=== PATIENT | female | born 1935 | race Hispanic/Latino ===

== ENCOUNTER 2017-06-23 17:37 | Observation (INO) | payer OTHER ==
[~2017-06-23] VITALS: Ht 167.6 cm; Wt 82.0 kg
[~2017-06-23 17:37] MED LIST: AMLO5TAB2 PO; ASPI-1005 PO; CALC-1009 PO; FERR324T4 PO; FOLI-44 PO; FURO40TA5 PO; GABA-529 PO; LISI2.5T2 PO; METO25TA6 PO; PANT40TA25 PO; PRAV10TA39 PO; SITA100T12 PO
[2017-06-23 18:02] LABS: BASOPHILS % (AUTO) 0.5 % (0.0-5.0); EOSINOPHILS % (AUTO) 2.3 % (0.0-8.0); HEMATOCRIT 21.6 % (36-48); LYMPHOCYTES % (AUTO) 21.2 % (21.0-51.0); MEAN CORPUSCULAR HGB CONC 31.4 g/dL (32.0-36.0); MEAN CORPUSCULAR VOLUME 73.3 fL (79-99); MONOCYTES % (AUTO) 10.5 % (3.0-13.0); NEUTROPHILS % (AUTO) 65.5 % (40.0-77.0); NUCLEATED RED BLOOD CELLS 0.1 % (0.0-0.19); PLATELET COUNT (AUTO) 170 K/uL (130-400); RED BLOOD CELL COUNT(AUTO) 2.95 MIL/uL (4.00-5.50); RED CELL DISTRIBUTION WIDTH 17.8 % (11.0-15.5); WHITE BLOOD COUNT (AUTO) 7.2 K/uL (4.8-10.8)
[2017-06-23 18:16] LABS: ALBUMIN 2.9 g/dL (3.5-5.0); BILIRUBIN,TOTAL 0.3 mg/dL (0.2-1.0); CREATININE 2.3 mg/dL (0.5-1.5); POTASSIUM 4.4 mmol/L (3.5-5.1); TOTAL PROTEIN, SERUM 7.6 g/dL (6.0-8.3)
[2017-06-23] MEDS ORDERED: DEXTROSE 50%-WATER 50 ML DISP.SYRIN IV ONE (18:20)
[2017-06-23 22:10] VITALS: BP 173/75
[2017-06-23] MEDS ORDERED: DEXTROSE 50%-WATER 50 ML DISP.SYRIN IV PRN (22:15)
[2017-06-23] MEDS ORDERED: GLUCAGON 1MG KIT 1 MG ML IM PRN (22:15)
[2017-06-23 23:33] VITALS: BP 155/69
[2017-06-23] MEDS ORDERED: GUAIFENESIN-DM 200/20 MG 10 ML PO PRN (23:45)
[2017-06-23] MEDS ORDERED: LACTULOSE 20 GM/30 ML UDCUP PO PRN (23:45)
[2017-06-23] MEDS ORDERED: HYDRALAZINE HCL 20 MG/ML VIAL IV PRN (23:45)
[2017-06-23] MEDS ORDERED: CEFTRIAXONE 1GM/D5W 50ML 50 ML IV SCH (23:45)
[2017-06-23] MEDS ORDERED: NITROGLYCERIN 0.4 MG SL TAB SL PRN (23:45)
[2017-06-23] MEDS ORDERED: ONDANSETRON HCL 4 MG/2 ML VIAL IV PRN (23:45)
[2017-06-23] MEDS ORDERED: ACETAMINOPHEN 325 MG TAB PO PRN ×2 (23:45)
[2017-06-24] MEDS ORDERED: AZITHROMYCIN 500MG+NS 250ML 250 ML IV SCH
[2017-06-24] MEDS ORDERED: CEFTRIAXONE SODIUM 1 GM IVP SCH (00:30)
[2017-06-24] MEDS: NITROGLYCERIN 1GM/1 INCH PACKET TD SCH ×3 (00:57→15:45)
[2017-06-24] MEDS ORDERED: FUROSEMIDE 10 MG/ML 4ML VIAL IVP ONE (01:00)
[2017-06-24] MEDS: IPRATROPIUM/ALBUTEROL SULFATE 3 ML SOLUTION IH SCH ×2 (01:26→06:22)
[2017-06-24 03:37] VITALS: BP 126/58
[2017-06-24 06:05] LABS: HEMATOCRIT 25.6 % (36-48); MEAN CORPUSCULAR HGB CONC 32.4 g/dL (32.0-36.0); MEAN CORPUSCULAR VOLUME 74.1 fL (79-99); NUCLEATED RED BLOOD CELLS 0.2 % (0.0-0.19); PLATELET COUNT (AUTO) 158 K/uL (130-400); RED BLOOD CELL COUNT(AUTO) 3.46 MIL/uL (4.00-5.50); RED CELL DISTRIBUTION WIDTH 17.6 % (11.0-15.5); WHITE BLOOD COUNT (AUTO) 8.4 K/uL (4.8-10.8)
[2017-06-24 06:38] LABS: CARBON DIOXIDE 27 mmol/L (21-32); CHLORIDE 107 mmol/L (101-111); CREATINE KINASE MB 1.7 ng/mL (0.5-3.6); CREATINE KINASE, TOTAL 64 U/L (21-232); CREATININE 2.4 mg/dL (0.5-1.5); GLOMERULAR FILTR. RATE CALC 21 mL/min (>60); GLUCOSE,RANDOM 130 mg/dL (70-105); MYOGLOBIN 97 ng/mL (10-92); POTASSIUM 5.5 mmol/L (3.5-5.1); SODIUM SERUM 143 mmol/L (136-145); TROPONIN I < 0.04 ng/mL (0.00-0.06); UREA NITROGEN, BLOOD 35 mg/dL (7-18)
[2017-06-24] MEDS ORDERED: SODIUM POLYSTYRENE SULFONATE 15 GM/60 ML ML PO SCH (07:00)
[2017-06-24 07:38] VITALS: BP 148/73
[2017-06-24] MEDS ORDERED: FAMOTIDINE 20MG TAB 20 MG TAB PO SCH (09:00)
[2017-06-24] MEDS ORDERED: FUROSEMIDE 10 MG/ML 4ML VIAL IV SCH (09:00)
[2017-06-24] MEDS ORDERED: FUROSEMIDE 40 MG TABLET PO SCH (10:00)
[2017-06-24 10:18] LABS: RETICULOCYTE % (AUTO) 2.72 % (0.42-2.23)
[2017-06-24 10:52] LABS: % IRON SATURATION 40.8 % (22-44); FERRITIN 11 ng/mL (15-150); IRON, SERUM 143 mcg/dL (50-170); TOTAL IRON BINDING CAPACITY 350 mcg/dL (250-450)
[2017-06-24 11:16] VITALS: BP 146/67
[2017-06-24 12:31] LABS: CREATINE KINASE MB 1.8 ng/mL (0.5-3.6); CREATINE KINASE, TOTAL 70 U/L (21-232); MYOGLOBIN 132 ng/mL (10-92); TROPONIN I < 0.04 ng/mL (0.00-0.06)
[2017-06-24] MEDS ORDERED: IRON SUCROSE COMPLEX 100 MG in SODIUM CHLORIDE 0.9% 50 ML IV ONE (14:00)
[2017-06-24 16:44] VITALS: BP 153/67
[2017-08-18] MEDS ORDERED: TRAZ-147 PO (08:33)
== END 2017-06-24 19:47 | disposition home or self-care (01) ==
LOC: EDH 17:37 → EDHIP 20:18 → 2DH 20:49
PROVIDERS: ADMIT Internal Medicine; ATTEND Internal Medicine
DX: D50.9 Iron deficiency anemia, unspecified (principal); E78.5 Hyperlipidemia, unspecified; K59.00 Constipation, unspecified; I13.2 Hypertensive heart and chronic kidney disease with heart failure and with stage 5 chronic kidney disease, or end stage renal disease; E11.22 Type 2 diabetes mellitus with diabetic chronic kidney disease; E11.51 Type 2 diabetes mellitus with diabetic peripheral angiopathy without gangrene; E11.649 Type 2 diabetes mellitus with hypoglycemia without coma; N18.6 End stage renal disease; I50.9 Heart failure, unspecified; D63.8 Anemia in other chronic diseases classified elsewhere; Z86.010 Personal history of colon polyps; Z90.49 Acquired absence of other specified parts of digestive tract
CPT/HCPCS: 36415 ×2; 36430 ×2; 71045; 76770; 80048; 80053; 82270; 82550 ×2; 82553 ×2; 82607; 82728; 82746; 82948 ×7; 83874 ×2; 83880; 84484 ×2; 85025; 85027; 86850; 86900; 86901; 86922 ×2; 87804 ×2; 93005; 94640 ×2; 94664; 96365; 96375; 96376; 99285; A4218; G0378 ×23; J0456; J0696 ×2; J1756; J1940 ×2; J7070; P9016 ×2

== ENCOUNTER 2017-08-18 03:47 | Observation (INO) | payer OTHER ==
[~2017-08-18] VITALS: Ht 165.1 cm; Wt 75.1 kg
[2017-08-18 04:52] LABS: APPEARANCE,URINE TURBID (CLEAR); BILIRUBIN,URINE Negative (NEGATIVE); COLOR,URINE RED (YELLOW); GLUCOSE, URINE (UA) Negative (NEGATIVE); KETONES,URINE Negative (NEGATIVE); LEUKOCYTE ESTERASE ,URINE Large (NEGATIVE); NITRATE,URINE Negative (NEGATIVE); OCCULT BLOOD,URINE Large (NEGATIVE); PROTEIN,URINE POS 2+ (NEGATIVE); UROBILINOGEN,URINE 0.2 mg/dL (0.2-1.0)
[2017-08-18 04:53] LABS: BACTERIA,URINE Rare /HPF (None Seen); RBC,URINE >100 /HPF (0-1); SQUAMOUS EPITHELIAL CELL,UR Few /HPF (0-2)
[2017-08-18 06:13] LABS: BASOPHILS % (AUTO) 0.3 % (0.0-5.0); EOSINOPHILS % (AUTO) 1.1 % (0.0-8.0); LYMPHOCYTES % (AUTO) 14.5 % (21.0-51.0); MEAN CORPUSCULAR HEMOGLOBIN 27.8 pg (27.0-33.0); MEAN CORPUSCULAR HGB CONC 35.1 g/dL (32.0-36.0); MEAN CORPUSCULAR VOLUME 79.1 fL (79-99); MONOCYTES % (AUTO) 7.9 % (3.0-13.0); NEUTROPHILS % (AUTO) 76.2 % (40.0-77.0); PLATELET COUNT (AUTO) 141 K/uL (130-400); RED BLOOD CELL COUNT(AUTO) 3.28 MIL/uL (4.00-5.50); RED CELL DISTRIBUTION WIDTH 19.8 % (11.0-15.5); WHITE BLOOD COUNT (AUTO) 8.1 K/uL (4.8-10.8)
[2017-08-18 06:28] LABS: CREATININE 2.8 mg/dL (0.5-1.5); POTASSIUM 5.4 mmol/L (3.5-5.1)
[2017-08-18] MEDS ORDERED: SODIUM POLYSTYRENE SULFONATE 15 GM/60 ML ML ONE (07:58)
[2017-08-18] MEDS ORDERED: TRAZ-187 PO (08:33)
[2017-08-18] MEDS ORDERED: ACETAMINOPHEN 325 MG TAB PO PRN ×2 (09:00)
[2017-08-18] MEDS ORDERED: CLONIDINE HCL 0.1 MG TABLET PO PRN (09:00)
[2017-08-18] MEDS ORDERED: LACTULOSE 20 GM/30 ML UDCUP PO PRN (09:00)
[2017-08-18] MEDS ORDERED: ONDANSETRON HCL MDV 20ML 2 MG/ML VIAL IVP PRN (09:00)
[2017-08-18] MEDS ORDERED: INSU100I15 SQ ×2 (09:42)
[2017-08-18] MEDS: PANTOPRAZOLE 40 MG/VIAL IVP SCH (10:26)
[2017-08-18] MEDS ORDERED: INSULIN HUMULIN R 100 UNIT/ML 3ML SQ SCH (11:30)
[2017-08-18 12:54] VITALS: BP 142/63
[2017-08-18 15:07] VITALS: BP 175/74
[2017-08-18] MEDS: INSULIN HUMULIN R 100 UNIT/ML 3ML SQ SCH ×2 (17:30→23:30)
[2017-08-18 17:57] VITALS: BP 142/62
[2017-08-18 20:02] VITALS: BP 152/72
[2017-08-19 00:09] VITALS: BP 148/67
[2017-08-19 04:15] VITALS: BP 149/66
[2017-08-19 04:31] LABS: HEMATOCRIT 25.3 % (36-48); MEAN CORPUSCULAR HEMOGLOBIN 25.8 pg (27.0-33.0); MEAN CORPUSCULAR HGB CONC 32.6 g/dL (32.0-36.0); MEAN CORPUSCULAR VOLUME 79.1 fL (79-99); PLATELET COUNT (AUTO) 131 K/uL (130-400); RED CELL DISTRIBUTION WIDTH 20.5 % (11.0-15.5); WHITE BLOOD COUNT (AUTO) 6.8 K/uL (4.8-10.8)
[2017-08-19 04:47] LABS: CREATININE 2.6 mg/dL (0.5-1.5); POTASSIUM 4.5 mmol/L (3.5-5.1)
[2017-08-19] MEDS: INSULIN HUMULIN R 100 UNIT/ML 3ML SQ SCH ×4 (05:30→23:30)
[2017-08-19 08:00] VITALS: BP 182/81
[2017-08-19 09:29] LABS: HEMATOCRIT 25.4 % (36-48)
[2017-08-19] MEDS ORDERED: METR375C2 PO (10:03)
[2017-08-19 11:00] VITALS: BP 141/57
[2017-08-19] MEDS: PANTOPRAZOLE 40 MG/VIAL IVP SCH (17:54)
[2017-08-19 19:05] VITALS: BP 147/74
[2017-08-20] VITALS: BP 151/61
[2017-08-20 04:05] VITALS: BP 143/61
[2017-08-20] MEDS: INSULIN HUMULIN R 100 UNIT/ML 3ML SQ SCH (05:30)
[2017-08-20 08:00] VITALS: BP_SYST 107; BP_SYST 135; BP_SYST 159; BP_DIAS 57; BP_DIAS 66; BP_DIAS 68
[2017-08-20] MEDS: PANTOPRAZOLE 40 MG/VIAL IVP SCH (10:11)
== END 2017-08-20 12:06 | disposition home or self-care (01) ==
LOC: EDH 03:47 → EDHIP 07:26 → 3BH 15:00
PROVIDERS: ADMIT Family Medicine; ATTEND Family Medicine
DX: R31.9 Hematuria, unspecified (principal); D64.9 Anemia, unspecified; I13.0 Hypertensive heart and chronic kidney disease with heart failure and stage 1 through stage 4 chronic kidney disease, or unspecified chronic kidney disease; N18.3 Chronic kidney disease, stage 3 (moderate); I50.9 Heart failure, unspecified; E11.22 Type 2 diabetes mellitus with diabetic chronic kidney disease; E11.51 Type 2 diabetes mellitus with diabetic peripheral angiopathy without gangrene; E78.5 Hyperlipidemia, unspecified; E87.5 Hyperkalemia; Z79.82 Long term (current) use of aspirin; Z90.49 Acquired absence of other specified parts of digestive tract
CPT/HCPCS: 36415 ×2; 74176; 80048 ×2; 81001; 82270; 82948 ×9; 83540; 83550; 85014; 85018; 85025; 85027; 86677; 96374; 96376 ×2; 99285; C9113 ×2; G0378 ×53

== ENCOUNTER 2017-10-07 20:32 | Emergency (ER) | payer OTHER ==
[~2017-10-07 20:32] MED LIST changes: -ASPI-1005 PO; +INSU100I15 SQ; -LISI2.5T2 PO; -METO25TA6 PO; +METR375C2 PO; -SITA100T12 PO; +TRAZ-187 PO
[2017-10-07 20:50] LABS: BASOPHILS % (AUTO) 0.4 % (0.0-5.0); EOSINOPHILS % (AUTO) 1.8 % (0.0-8.0); LYMPHOCYTES % (AUTO) 13.9 % (21.0-51.0); MEAN CORPUSCULAR HEMOGLOBIN 25.8 pg (27.0-33.0); MEAN CORPUSCULAR HGB CONC 32.4 g/dL (32.0-36.0); MEAN CORPUSCULAR VOLUME 79.5 fL (79-99); MONOCYTES % (AUTO) 7.4 % (3.0-13.0); NEUTROPHILS % (AUTO) 76.5 % (40.0-77.0); PLATELET COUNT (AUTO) 126 K/uL (130-400); RED BLOOD CELL COUNT(AUTO) 3.15 MIL/uL (4.00-5.50); RED CELL DISTRIBUTION WIDTH 16.5 % (11.0-15.5); WHITE BLOOD COUNT (AUTO) 6.5 K/uL (4.8-10.8)
[2017-10-07 20:59] LABS: CREATININE 2.1 mg/dL (0.5-1.5)
[2017-10-07 21:04] LABS: ALBUMIN 2.7 g/dL (3.5-5.0); BILIRUBIN,TOTAL 0.2 mg/dL (0.2-1.0); TOTAL PROTEIN, SERUM 6.5 g/dL (6.0-8.3)
== END 2017-10-07 22:11 | disposition home or self-care (01) ==
LOC: EDH 20:32
DX: E11.65 Type 2 diabetes mellitus with hyperglycemia (principal); I11.0 Hypertensive heart disease with heart failure; I50.9 Heart failure, unspecified; E78.5 Hyperlipidemia, unspecified; D64.9 Anemia, unspecified
CPT/HCPCS: 36415; 80053; 82948; 85025; 93005

== ENCOUNTER → 2018-01-20 | Outpatient (CLI) | payer OTHER ==
[~2018-01-20] MED LIST changes: -AMLO5TAB2 PO; +AMLO5TAB7 PO
== END | disposition home or self-care (01) ==
LOC: EDBD 13:00 → SHCH 13:01
PROVIDERS: ATTEND Internal Medicine Cardiovascular Disease
DX: I87.2 Venous insufficiency (chronic) (peripheral) (principal); I13.0 Hypertensive heart and chronic kidney disease with heart failure and stage 1 through stage 4 chronic kidney disease, or unspecified chronic kidney disease; E11.22 Type 2 diabetes mellitus with diabetic chronic kidney disease; I50.9 Heart failure, unspecified; E78.5 Hyperlipidemia, unspecified
CPT/HCPCS: 93970

== ENCOUNTER → 2018-02-10 | Outpatient (CLI) | payer OTHER | END | disposition home or self-care (01) | LOC: SHCH 13:17 | PROVIDERS: ATTEND Internal Medicine Cardiovascular Disease | DX: R06.02 Shortness of breath (principal) | CPT/HCPCS: 93306 ==

== ENCOUNTER 2018-11-10 17:12 | Inpatient (IN) | payer OTHER ==
[~2018-11-10] VITALS: Ht 167.6 cm; Wt 71.2 kg
[~2018-11-10 17:12] MED LIST changes: -AMLO5TAB7 PO; +AMLO5TAB9 PO; +CENTRUM CHEWAB1 EACH PO; -FOLI-44 PO
[2018-11-10 18:04] LABS: BASOPHILS % (AUTO) 0.2 % (0.0-5.0); EOSINOPHILS % (AUTO) 1.5 % (0.0-8.0); LYMPHOCYTES % (AUTO) 10.8 % (21.0-51.0); MEAN CORPUSCULAR HEMOGLOBIN 24.2 pg (27.0-33.0); MEAN CORPUSCULAR HGB CONC 31.5 g/dL (32.0-36.0); MEAN CORPUSCULAR VOLUME 76.8 fL (79-99); MONOCYTES % (AUTO) 7.3 % (3.0-13.0); NEUTROPHILS % (AUTO) 80.2 % (40.0-77.0); NUCLEATED RED BLOOD CELLS 0.2 % (0.0-0.19); PLATELET COUNT (AUTO) 139 K/uL (130-400); RED BLOOD CELL COUNT(AUTO) 2.62 MIL/uL (4.00-5.50); WHITE BLOOD COUNT (AUTO) 5.6 K/uL (4.8-10.8)
[2018-11-10 18:13] LABS: INR 1.02 (0.85-1.15); PARTIAL THROMBOPLASTIN TIME 23.4 SEC (26.3-35.5); PROTHROMBIN TIME 10.7 SEC (9.6-11.6)
[2018-11-10 18:15] LABS: POTASSIUM 4.4 mmol/L (3.5-5.1)
[2018-11-10 18:19] LABS: ALBUMIN 3.2 g/dL (3.5-5.0); BILIRUBIN,DIRECT 0.1 mg/dL (0.0-0.3); BILIRUBIN,TOTAL 0.4 mg/dL (0.2-1.0)
[2018-11-10 18:29] LABS: HEMATOCRIT 20.2 % (36-48)
[2018-11-10 19:00] LABS: APPEARANCE,URINE Clear (CLEAR); BILIRUBIN,URINE Negative (NEGATIVE); COLOR,URINE Yellow (YELLOW); GLUCOSE, URINE (UA) Negative (NEGATIVE); KETONES,URINE Negative (NEGATIVE); LEUKOCYTE ESTERASE ,URINE Trace (NEGATIVE); NITRATE,URINE Negative (NEGATIVE); OCCULT BLOOD,URINE Negative (NEGATIVE); PROTEIN,URINE Trace mg/dL (NEGATIVE); UROBILINOGEN,URINE 0.2 mg/dL (0.2-1.0)
[2018-11-10 19:37] LABS: BACTERIA,URINE Rare /HPF (None Seen); RBC,URINE None Seen /HPF (0-1); SQUAMOUS EPITHELIAL CELL,UR 0-2 /HPF (0-2)
[2018-11-10 19:45] LABS: B-TYPE NATRIURETIC PEPTIDE 515 pg/mL (0-100)
[2018-11-10] MEDS: NITROGLYCERIN 1GM/1 INCH PACKET TD SCH (21:00)
[2018-11-10 21:20] VITALS: BP 130/38
[2018-11-10] MEDS ORDERED: SODIUM CHLORIDE 0.9% 500ML 500 ML IV ONE (21:22)
[2018-11-10] MEDS ORDERED: HYDR-3421 PO (22:43)
[2018-11-10] MEDS ORDERED: METO-409 PO (22:45)
[2018-11-10] MEDS ORDERED: DILT180C51 PO (22:47)
[2018-11-10] MEDS ORDERED: FURO20TA6 PO (22:47)
[2018-11-10 23:37] VITALS: BP 121/46
[2018-11-11] MEDS ORDERED: FUROSEMIDE 10 MG/ML 2ML VIAL IV SCH (01:00)
[2018-11-11] MEDS ORDERED: FUROSEMIDE 10 MG/ML 2ML VIAL ONE (02:43)
[2018-11-11] MEDS: NITROGLYCERIN 1GM/1 INCH PACKET TD SCH ×4 (02:45→21:33)
[2018-11-11 02:49] VITALS: BP 143/57
[2018-11-11 03:05] VITALS: BP 125/46
[2018-11-11 05:01] LABS: BASOPHILS % (AUTO) 0.4 % (0.0-5.0); EOSINOPHILS % (AUTO) 0.6 % (0.0-8.0); HEMATOCRIT 22.6 % (36-48); LYMPHOCYTES % (AUTO) 8.8 % (21.0-51.0); MEAN CORPUSCULAR HGB CONC 31.7 g/dL (32.0-36.0); MEAN CORPUSCULAR VOLUME 78.9 fL (79-99); MONOCYTES % (AUTO) 9.5 % (3.0-13.0); NEUTROPHILS % (AUTO) 80.7 % (40.0-77.0); NUCLEATED RED BLOOD CELLS 0.3 % (0.0-0.19); PLATELET COUNT (AUTO) 142 K/uL (130-400); RED BLOOD CELL COUNT(AUTO) 2.87 MIL/uL (4.00-5.50); WHITE BLOOD COUNT (AUTO) 6.4 K/uL (4.8-10.8)
[2018-11-11 08:00] VITALS: BP 109/46
[2018-11-11] MEDS: FUROSEMIDE 10 MG/ML 2ML VIAL IVP SCH (09:40)
--- NOTE | 2018-11-11 10:59 | NUR ---
CALLED [phone] MUNOZ THAT PATIENT C/O SHORTNESS OF BREATH. DR. MUNOZ NOT WORKGROUP LEADER TODAY, ZACARIAS LLANOS WILL BE COVERING. CHIEF CLERK STATES SHE WILL PAGE [place]. CALL BACK NUMBER [phone] GIVEN. PATIENT SITTING UPRIGHT, O2SAT IS 97% ON 02 3L VIA NC.
[2018-11-11 11:00] VITALS: BP 137/57
--- NOTE | 2018-11-11 11:30 | NUR ---
[facility] LOTTERY MANAGER ROUNDING ON PATIENT AT THIS TIME. NEW ORDERS RECEIVED.
[2018-11-11] MEDS ORDERED: NITROGLYCERIN 0.4 MG SL TAB SL PRN (11:45)
[2018-11-11] MEDS ORDERED: ZOLPIDEM TARTRATE 5 MG TAB PO PRN (11:45)
[2018-11-11] MEDS ORDERED: ACETAMINOPHEN 325 MG TAB PO PRN ×2 (11:45)
[2018-11-11] MEDS ORDERED: HYDRALAZINE HCL 20 MG/ML VIAL IV PRN (11:45)
[2018-11-11] MEDS ORDERED: POTASSIUM CHLORIDE 10% ELIXIR 20 MEQ/15 ML UDCUP PO PRN (11:45)
[2018-11-11] MEDS ORDERED: POTASSIUM CHLORIDE 20MEQ/100ML 100 ML IV PRN (11:45)
[2018-11-11] MEDS ORDERED: ACETAMINOPHEN-CODEINE 300/30MG TAB PO PRN (11:45)
[2018-11-11] MEDS ORDERED: ONDANSETRON HCL 4 MG/2 ML VIAL IV PRN (11:45)
[2018-11-11] MEDS ORDERED: LIDOCAINE HCL-MPF 1% 2ML VIAL IVP PRN (11:45)
[2018-11-11] MEDS ORDERED: LACTULOSE 20 GM/30 ML UDCUP PO PRN (11:45)
[2018-11-11] MEDS ORDERED: MORPHINE SULFATE 2 MG/ML 1ML SYG IV PRN (11:45)
[2018-11-11] MEDS ORDERED: GUAIFENESIN-DM 200/20 MG 10 ML PO PRN (11:45)
[2018-11-11] MEDS ORDERED: MAG HYDROX/AL HYDROX/SIMETH ES 30 ML SUSP UDCUP PO PRN (11:45)
[2018-11-11] MEDS ORDERED: DiphenhydrAMINE HCL 50 MG/ML VIAL IV PRN (11:45)
[2018-11-11] MEDS ORDERED: MAGNESIUM 2GM PREMIX 50ML 50 ML IV PRN (11:45)
[2018-11-11] MEDS ORDERED: POTASSIUM CHLORIDE 20 MEQ ERTAB PO PRN (11:45)
[2018-11-11] MEDS ORDERED: DIPHENHYDRAMINE HCL 25 MG CAPSULE PO PRN (11:45)
[2018-11-11] MEDS: PHARMACY COMMUNICATION MISC SCH ×2 (12:15→20:15)
[2018-11-11] MEDS: ACETYLCYSTEINE 10% 100MG/ML 4ML VIAL IH SCH ×2 (12:19→18:50)
[2018-11-11] MEDS: IPRATROPIUM 0.5 MG/2.5 ML INH IH SCH ×2 (12:19→18:50)
--- NOTE | 2018-11-11 12:52 | NUR ---
. CALLED AND INFORMED ON PENDING CONSULT. LABS REPORTED. DR. LAMAS WILL ROUND ON PATIENT LATER TODAY.
[2018-11-11] MEDS: CEFTRIAXONE SODIUM 1 GM IV SCH (13:29)
--- NOTE | 2018-11-11 13:30 | NUR ---
ORDERS COMMUNICATIONS SENIOR ASSOCIATE ADELA SAW PATIENT PLUG MACHINE OPERATOR. NEW ORDERS TO GIVE PATIENT HOME MEDICATION CARDIZEM AND METOPROLOL NOW.
[2018-11-11] MEDS: AZITHROMYCIN 500MG+NS 250ML 250 ML IV SCH (13:38)
[2018-11-11] MEDS: DILTIAZEM HCL 180 MG CAP.SR.24H PO SCH (13:51)
--- NOTE | 2018-11-11 14:16 | NUR ---
CONSULT RECEIVED CALL FROM DR. GRIER OFFICE REGARDING CONSULT. DR. GRIER WILL BE MADE AWARE OF CONSULT BY HATCHERY MANAGER.
[2018-11-11] MEDS ORDERED: Metoprolol Succinate 100 MG PO ONE (14:30)
--- NOTE | 2018-11-11 15:37 | NUR ---
COMFORT PATIENT SITTING AT THE EDGE OF BED TALKING WITH FAMILY. PULSE 104, O2 SAT 98% 3L O2 VIA NC NO COMPLAINTS AT THIS TIME. CALL LIGHT LEFT IN REACH.
[2018-11-11 16:00] VITALS: BP 120/65
--- NOTE | 2018-11-11 16:00 | NUR ---
INITIAL MET W PATIENT ALONE, STATES LIVES WITH SPOUSE AND DAUGHTER MAO ASSIST WITH TRANSPORT, WILL DO SO THIS ITME ALSO, STATES USES ROLLING WALKER AND STD WALKER- OCCASIONALLY, AND O2 NEEDED. STATES MUCH MORE WEAK AND SHORT OF BREATH ON THIS ADMISSION, ' WARREN UP POSSIBLITY OF SNF FOR REHAB ; STATES SHE WANTED TO WAIT FOR HER DAUGHTER TO DECIDE Addendum: 11/13/18 at 1918 by TIANA HERNANDEZ RN CM Amended: Links added.
[2018-11-11] MEDS: INSULIN HUMULIN R 100 UNIT/ML 3ML SQ SCH ×2 (16:30→20:44)
[2018-11-11] MEDS: BUDESONIDE 0.5 MG/2 ML INH IH SCH (19:08)
[2018-11-11 20:00] VITALS: BP 119/62
[2018-11-11] MEDS: PANTOPRAZOLE SODIUM 40 MG TABLET.DR PO SCH (20:46)
[2018-11-12] VITALS (22 sets, daily range): BP systolic 98–134; BP diastolic 51–69
[2018-11-12] MEDS: ACETYLCYSTEINE 10% 100MG/ML 4ML VIAL IH SCH ×5 (00:10→23:18)
[2018-11-12] MEDS: IPRATROPIUM 0.5 MG/2.5 ML INH IH SCH ×5 (00:10→23:18)
[2018-11-12] MEDS: NITROGLYCERIN 1GM/1 INCH PACKET TD SCH ×4 (03:51→21:18)
[2018-11-12] MEDS: PHARMACY COMMUNICATION MISC SCH ×3 (04:15→20:15)
[2018-11-12 05:54] LABS: BASOPHILS % (AUTO) 0.3 % (0.0-5.0); EOSINOPHILS % (AUTO) 1.4 % (0.0-8.0); HEMATOCRIT 23.4 % (36-48); LYMPHOCYTES % (AUTO) 14.1 % (21.0-51.0); MEAN CORPUSCULAR HEMOGLOBIN 25.7 pg (27.0-33.0); MEAN CORPUSCULAR HGB CONC 32.4 g/dL (32.0-36.0); MEAN CORPUSCULAR VOLUME 79.5 fL (79-99); MONOCYTES % (AUTO) 8.2 % (3.0-13.0); NUCLEATED RED BLOOD CELLS 0.1 % (0.0-0.19); PLATELET COUNT (AUTO) 142 K/uL (130-400); RED BLOOD CELL COUNT(AUTO) 2.94 MIL/uL (4.00-5.50); RED CELL DISTRIBUTION WIDTH 16.3 % (11.0-15.5); RETICULOCYTE % (AUTO) 4.91 % (0.42-2.23); WHITE BLOOD COUNT (AUTO) 6.3 K/uL (4.8-10.8)
[2018-11-12 06:02] LABS: B-TYPE NATRIURETIC PEPTIDE 902 pg/mL (0-100)
[2018-11-12 06:03] LABS: CREATININE 2.8 mg/dL (0.5-1.5); POTASSIUM 3.9 mmol/L (3.5-5.1)
[2018-11-12 06:04] LABS: INR 1.05 (0.85-1.15); PARTIAL THROMBOPLASTIN TIME 27.5 SEC (26.3-35.5)
[2018-11-12 06:10] LABS: % IRON SATURATION 7.8 % (22-44)
[2018-11-12 06:15] LABS: ALBUMIN 3.1 g/dL (3.5-5.0); BILIRUBIN,TOTAL 0.5 mg/dL (0.2-1.0); MAGNESIUM 2.2 mg/dL (1.80-2.40); PHOSPHORUS 4.3 mg/dL (2.5-4.9); THYROID STIMULATING HORMONE 4.53 uIU/mL (0.36-3.74); TOTAL PROTEIN, SERUM 6.9 g/dL (6.0-8.3)
[2018-11-12] MEDS: BUDESONIDE 0.5 MG/2 ML INH IH SCH ×2 (06:23→18:28)
[2018-11-12] MEDS: INSULIN HUMULIN R 100 UNIT/ML 3ML SQ SCH ×4 (07:30→21:00)
--- NOTE | 2018-11-12 08:13 | NUR ---
TAKEN TO CT SCAN VIA WHEELCHAIR.
[2018-11-12] MEDS: FUROSEMIDE 10 MG/ML 2ML VIAL IVP SCH (09:00)
[2018-11-12] MEDS: PANTOPRAZOLE SODIUM 40 MG TABLET.DR PO SCH ×2 (09:00→21:18)
[2018-11-12] MEDS: DILTIAZEM HCL 180 MG CAP.SR.24H PO SCH (09:00)
[2018-11-12] MEDS: CEFTRIAXONE SODIUM 1 GM IV SCH (11:05)
[2018-11-12] MEDS: AZITHROMYCIN 500MG+NS 250ML 250 ML IV SCH (11:05)
--- NOTE | 2018-11-12 11:15 | NUR ---
TAKEN TO GI LAB FOR EGD.
--- NOTE | 2018-11-12 12:15 | NUR ---
RETURNED TO THE UNIT ALERT AND STABLE. DENIES ANY DISCOMFORT UPON ARRIVAL; VITAL SIGNS ARE STABLE.
[2018-11-12] MEDS ORDERED: PEG 3350/NA SULF,BICARB,CL/KCL 4000 ML SOLN PO SCH (17:00)
--- NOTE | 2018-11-12 17:40 | NUR ---
CONSENT OBTAINED FROM PATIENT'S DAUGHTER FOR SCHEDULED PROCEDURE, PLACED IN THE CHART.
--- NOTE | 2018-11-12 23:00 | NUR ---
PT. DRANK ALL THE GO-LYTELY. HAD YELLOWISH GREEN LIQUID STOOL IN BED, SKIN CARE DONE AND BED LINENS CHANGED BY GABRIELA CULLEN.
[2018-11-13] VITALS (21 sets, daily range): BP systolic 105–144; BP diastolic 55–70
--- NOTE | 2018-11-13 03:00 | NUR ---
STOOL CLEAR AT THIS TIME.
[2018-11-13] MEDS: NITROGLYCERIN 1GM/1 INCH PACKET TD SCH ×4 (03:14→21:46)
[2018-11-13] MEDS: PHARMACY COMMUNICATION MISC SCH ×3 (04:15→20:15)
[2018-11-13 04:46] LABS: BASOPHILS % (AUTO) 0.5 % (0.0-5.0); EOSINOPHILS % (AUTO) 1.3 % (0.0-8.0); HEMATOCRIT 22.5 % (36-48); LYMPHOCYTES % (AUTO) 15.7 % (21.0-51.0); MEAN CORPUSCULAR HEMOGLOBIN 24.8 pg (27.0-33.0); MEAN CORPUSCULAR HGB CONC 31.7 g/dL (32.0-36.0); MONOCYTES % (AUTO) 7.7 % (3.0-13.0); NEUTROPHILS % (AUTO) 74.8 % (40.0-77.0); NUCLEATED RED BLOOD CELLS 0.2 % (0.0-0.19); PLATELET COUNT (AUTO) 152 K/uL (130-400); RED BLOOD CELL COUNT(AUTO) 2.89 MIL/uL (4.00-5.50); RED CELL DISTRIBUTION WIDTH 16.8 % (11.0-15.5); WHITE BLOOD COUNT (AUTO) 5.4 K/uL (4.8-10.8)
[2018-11-13 05:00] LABS: INR 1.08 (0.85-1.15); PROTHROMBIN TIME 11.3 SEC (9.6-11.6)
[2018-11-13 05:11] LABS: CREATININE 2.5 mg/dL (0.5-1.5); MAGNESIUM 2.3 mg/dL (1.80-2.40); POTASSIUM 3.7 mmol/L (3.5-5.1)
[2018-11-13] MEDS: INSULIN HUMULIN R 100 UNIT/ML 3ML SQ SCH ×4 (06:02→21:44)
--- NOTE | 2018-11-13 06:03 | NUR ---
CXR DONE IN PT'S ROOM BY [employer]
--- NOTE | 2018-11-13 06:20 | NUR ---
PT. TAKEN TO G.I FOR COLONOSCOPY BY G.I TECH.
[2018-11-13] MEDS ORDERED: LIDOCAINE HCL 1% 20 ML VIAL ONE (06:34)
[2018-11-13] MEDS: IPRATROPIUM 0.5 MG/2.5 ML INH IH SCH ×3 (07:30→18:00)
[2018-11-13] MEDS: ACETYLCYSTEINE 10% 100MG/ML 4ML VIAL IH SCH ×4 (07:30→23:04)
[2018-11-13] MEDS: BUDESONIDE 0.5 MG/2 ML INH IH SCH ×2 (07:30→18:30)
--- NOTE | 2018-11-13 08:00 | NUR ---
NURSING NOTE Back from colonoscopy. No distress.
[2018-11-13] MEDS ORDERED: METOPROLOL TARTRATE 50 MG TAB ONE (12:40)
[2018-11-13] MEDS: AZITHROMYCIN 500MG+NS 250ML 250 ML IV SCH (12:45)
[2018-11-13] MEDS: CEFTRIAXONE SODIUM 1 GM IV SCH (12:45)
[2018-11-13] MEDS: DILTIAZEM HCL 180 MG CAP.SR.24H PO SCH (12:46)
[2018-11-13] MEDS: LEVOTHYROXINE 25 MCG TABLET PO SCH (12:46)
[2018-11-13] MEDS: PANTOPRAZOLE SODIUM 40 MG TABLET.DR PO SCH ×2 (12:47→21:37)
[2018-11-13] MEDS: FUROSEMIDE 20 MG TABLET PO SCH (12:47)
--- NOTE | 2018-11-13 13:00 | NUR ---
THORACENTESIS Taken at this time to have right thoracentesis done.
--- NOTE | 2018-11-13 13:04 | NUR ---
CARDIOLOGY CONSULT Dr. Alfonso ordered consult for cardiology S/T tachycardia. Called [facility] at [phone]. Left voicemail to Elli about consult and left nurse's phone number for questions.
--- NOTE | 2018-11-13 14:00 | NUR ---
ORDER FOR SNF, AND PT AGREE, BUT DAUGHTER MAO WOULD LIKE TO WAIT UNTIL TOMORROW- WANTS PT TO GO HOME- WANTS TO SEE HOW WELL SHE DOES CLOSER TO DISCHARGE CM TO FOLLOW Addendum: 11/13/18 at 192 by TIANA HERNANDEZ RN CM Amended: Links added.
--- NOTE | 2018-11-13 14:25 | NUR ---
U/S GD RT THORACENTESIS PROCEDURE PERFORMED BY DR Graham REED. PUNCTURE SITE RT POSTERIOR BACK AND PATIENT TOLERATED PROCEDURE WELL. TOTAL REMOVED 1.2 LITERS OF BLOOD TINGED FLUID. END OF PROCEDURE AT 1355. CATHETER REMOVED AND DRESSING APPLIED. NO BLEEDING NOTED. POST CHEST X-RAY TAKEN AND PENDING RESULTS. REPORT GIVEN TO Rommel MICHEL RN AND PATIENT TRANSPORTED TO [facility] VIA BED AT 1425. AAO X3 WITH NO C/O PAIN. SPECIMEN SENT TO LAB
[2018-11-13] MEDS ORDERED: IPRATROPIUM/ALBUTEROL SULFATE 3 ML SOLUTION IH ONE ×2 (18:17→23:00)
[2018-11-13 20:15] LABS: SPECIMENTYPE,BODY FLUID PLEURAL
[2018-11-13 20:16] LABS: APPEARANCE BODY FLUID CLOUDY (CLEAR); COLOR,BODY FLUID DARK YELLOW (LT YELLOW); TOTAL VOLUME,BODY FLUID 1200 mL
[2018-11-13 20:17] LABS: BODY FLUID RBC 4450 /cu. mm.; BODY FLUID WBC 102 /cu. mm.
[2018-11-13 20:39] LABS: BF LYMPHOCYTE 40 %; BF MESOTHELIAL 2 %; BF MONOCYTE 1 %; BF OTHER CELLS 3
[2018-11-13] MEDS: METOPROLOL TARTRATE 50 MG TAB PO SCH (21:37)
--- NOTE | 2018-11-14 01:30 | NUR ---
PATIENT NOTED WITH SLURRED SPEECH, COOL CLAMMY SKIN. BLOOD SUGAR CHECKED WITH A RESULT OF 16. STAT GLUCOSE PLACE. AWARE. NEW ORDERS RECEIVED. DEXTROSE GIVEN IV. TOLERATED WELL. BLOOD SUGAR CHECKED AGAIN WITH A RESULT OF 132. LAB CALLED WITH A BLOOD SUGAR RESULT OF 272 AT 0128. PATIENT STATES SHE FEELS BETTER. FAMILY AT BEDSIDE. WILL CONTINUE TO BE OBSERVED. Addendum: 11/14/18 at 0236 by AURA BARNEY RN RN Amended: Links added.
[2018-11-14] MEDS ORDERED: DEXTROSE 50%-WATER 50 ML DISP.SYRIN IV PRN (01:45)
[2018-11-14] MEDS ORDERED: GLUCAGON 1MG KIT 1 MG ML IM PRN (01:45)
[2018-11-14 03:40] VITALS: BP 107/66
[2018-11-14] MEDS: NITROGLYCERIN 1GM/1 INCH PACKET TD SCH ×4 (03:57→23:04)
[2018-11-14] MEDS: INSULIN HUMULIN R 100 UNIT/ML 3ML SQ SCH ×4 (05:41→21:00)
[2018-11-14] MEDS: LEVOTHYROXINE 25 MCG TABLET PO SCH (05:42)
[2018-11-14] MEDS: ACETYLCYSTEINE 10% 100MG/ML 4ML VIAL IH SCH ×4 (06:35→23:18)
[2018-11-14] MEDS: IPRATROPIUM 0.5 MG/2.5 ML INH IH SCH ×4 (06:35→23:18)
[2018-11-14] MEDS: BUDESONIDE 0.5 MG/2 ML INH IH SCH ×2 (06:35→18:18)
[2018-11-14 09:14] VITALS: BP 116/48
[2018-11-14] MEDS: FUROSEMIDE 20 MG TABLET PO SCH (10:24)
[2018-11-14] MEDS: METOPROLOL TARTRATE 50 MG TAB PO SCH ×2 (10:24→23:04)
[2018-11-14] MEDS: DILTIAZEM HCL 180 MG CAP.SR.24H PO SCH (10:24)
[2018-11-14] MEDS: PANTOPRAZOLE SODIUM 40 MG TABLET.DR PO SCH ×2 (10:24→23:04)
[2018-11-14 12:06] VITALS: BP 108/41
[2018-11-14] MEDS: CEFTRIAXONE SODIUM 1 GM IV SCH (12:32)
[2018-11-14] MEDS: AZITHROMYCIN 500MG+NS 250ML 250 ML IV SCH (12:33)
[2018-11-14] MEDS ORDERED: SODIUM CHLORIDE 0.9% 250 ML IV ONE (12:48)
[2018-11-14] MEDS ORDERED: PHARMACY COMMUNICATION MISC SCH (13:00)
[2018-11-14 16:02] VITALS: BP 91/38
[2018-11-14 16:08] LABS: HEMATOCRIT 23.1 % (36-48); MEAN CORPUSCULAR HEMOGLOBIN 25.1 pg (27.0-33.0); MEAN CORPUSCULAR HGB CONC 31.5 g/dL (32.0-36.0); MEAN CORPUSCULAR VOLUME 79.7 fL (79-99); NUCLEATED RED BLOOD CELLS 0.1 % (0.0-0.19); PLATELET COUNT (AUTO) 141 K/uL (130-400); RED BLOOD CELL COUNT(AUTO) 2.89 MIL/uL (4.00-5.50); WHITE BLOOD COUNT (AUTO) 6.4 K/uL (4.8-10.8)
[2018-11-14 20:09] VITALS: BP 103/48
[2018-11-14 23:35] VITALS: BP 145/65
[2018-11-15 03:45] VITALS: BP 124/55
[2018-11-15] MEDS: NITROGLYCERIN 1GM/1 INCH PACKET TD SCH ×4 (03:49→21:25)
[2018-11-15] MEDS: IPRATROPIUM 0.5 MG/2.5 ML INH IH SCH ×5 (06:00→23:26)
[2018-11-15] MEDS: INSULIN HUMULIN R 100 UNIT/ML 3ML SQ SCH ×4 (06:02→21:00)
[2018-11-15] MEDS: LEVOTHYROXINE 25 MCG TABLET PO SCH (06:03)
[2018-11-15] MEDS: BUDESONIDE 0.5 MG/2 ML INH IH SCH ×2 (06:45→18:16)
[2018-11-15] MEDS: ACETYLCYSTEINE 10% 100MG/ML 4ML VIAL IH SCH ×4 (06:45→23:26)
[2018-11-15 08:00] VITALS: BP 134/55
--- NOTE | 2018-11-15 08:45 | NUR ---
DR. MUNOZ This morning patient reports dyspnea on exertion, difficulty making her own hair, denies feeling like that at all yesterday is starting to feel like she was feeling when she came to hospital. Her right lung sounds are decreased. Respiratory rate is 22. States she has pin-like sensations on her legs. Denies cramps, more like pins and needles. No other issues. Contacted answering service who stated to text Dr. Munoz informing him to call nurse. Texted Dr. Munoz to call nurse at [phone] to update him a patient who is having change in status. Pending for Dr. Munoz to call back.
[2018-11-15] MEDS: FUROSEMIDE 20 MG TABLET PO SCH (09:42)
[2018-11-15] MEDS: PANTOPRAZOLE SODIUM 40 MG TABLET.DR PO SCH ×2 (09:42→21:17)
[2018-11-15] MEDS: METOPROLOL TARTRATE 50 MG TAB PO SCH ×2 (09:43→21:17)
[2018-11-15] MEDS ORDERED: COMPOUND IV MISC 1 EACH IVSOLN MISC PRN (11:00)
[2018-11-15 11:11] LABS: HEMATOCRIT 23.3 % (36-48); MEAN CORPUSCULAR HEMOGLOBIN 24.7 pg (27.0-33.0); MEAN CORPUSCULAR HGB CONC 31.8 g/dL (32.0-36.0); MEAN CORPUSCULAR VOLUME 77.8 fL (79-99); NUCLEATED RED BLOOD CELLS 0.1 % (0.0-0.19); PLATELET COUNT (AUTO) 147 K/uL (130-400); RED CELL DISTRIBUTION WIDTH 17.4 % (11.0-15.5); WHITE BLOOD COUNT (AUTO) 6.3 K/uL (4.8-10.8)
[2018-11-15 11:26] LABS: CREATININE 3.1 mg/dL (0.5-1.5); POTASSIUM 3.8 mmol/L (3.5-5.1)
[2018-11-15 11:43] VITALS: BP 127/58
[2018-11-15] MEDS: AZITHROMYCIN 500MG+NS 250ML 250 ML IV SCH (12:49)
[2018-11-15] MEDS: DILTIAZEM HCL 180 MG CAP.SR.24H PO SCH (12:49)
[2018-11-15] MEDS: CEFTRIAXONE SODIUM 1 GM IV SCH (12:49)
[2018-11-15] MEDS: IRON SUCROSE COMPLEX 100 MG in SODIUM CHLORIDE 0.9% 50 ML IV SCH (12:50)
--- NOTE | 2018-11-15 15:00 | NUR ---
SHORTNESS OF BREATH updated Dr. Alfonso about patient's complaints of FARR, SOB, and implemented orders. As day went by she did not had any more complains. When asked by Dr. Alfonso during his rounds she stated "I have forgotten how I felt this morning". No distress.
[2018-11-15 16:00] VITALS: BP 131/54
[2018-11-15] MEDS ORDERED: SODIUM CHLORIDE 0.9% 500ML 500 ML IV ONE (18:40)
[2018-11-15 19:41] VITALS: BP 115/75
--- NOTE | 2018-11-15 19:58 | NUR ---
BLOOD TRANSFUSION Started one unit of blood transfusion PRBCs as ordered by Dr. Alfonso for hemoglobin 7.4 Vital signs stable. Afebrile. Transfusion started at 1907 to be run over 4 hours.
[2018-11-15 23:35] VITALS: BP 113/56
--- NOTE | 2018-11-15 23:58 | NUR ---
BLOOD TRANSFUSION Blood transfusion completed,no adverse reactions noted.Refer to blood transfusion record.
[2018-11-16 03:00] VITALS: BP 126/93
[2018-11-16] MEDS: NITROGLYCERIN 1GM/1 INCH PACKET TD SCH ×4 (03:00→20:22)
[2018-11-16] MEDS: INSULIN HUMULIN R 100 UNIT/ML 3ML SQ SCH ×4 (05:25→20:22)
[2018-11-16] MEDS: LEVOTHYROXINE 25 MCG TABLET PO SCH (06:24)
[2018-11-16] MEDS: BUDESONIDE 0.5 MG/2 ML INH IH SCH ×2 (06:29→18:24)
[2018-11-16] MEDS: IPRATROPIUM 0.5 MG/2.5 ML INH IH SCH ×4 (06:29→23:11)
[2018-11-16] MEDS: ACETYLCYSTEINE 10% 100MG/ML 4ML VIAL IH SCH ×4 (06:29→23:11)
[2018-11-16 07:00] VITALS: BP 130/59
[2018-11-16] MEDS: PANTOPRAZOLE SODIUM 40 MG TABLET.DR PO SCH ×2 (09:24→20:28)
[2018-11-16] MEDS: IRON SUCROSE COMPLEX 100 MG in SODIUM CHLORIDE 0.9% 50 ML IV SCH (09:24)
[2018-11-16] MEDS: METOPROLOL TARTRATE 50 MG TAB PO SCH ×2 (09:24→20:28)
[2018-11-16] MEDS: FUROSEMIDE 20 MG TABLET PO SCH (09:25)
[2018-11-16 11:00] VITALS: BP 120/52
[2018-11-16] MEDS: CEFTRIAXONE SODIUM 1 GM IV SCH (12:01)
[2018-11-16] MEDS: AZITHROMYCIN 500MG+NS 250ML 250 ML IV SCH (12:01)
[2018-11-16] MEDS: DILTIAZEM HCL 180 MG CAP.SR.24H PO SCH (12:06)
[2018-11-16] MEDS: FUROSEMIDE 10 MG/ML 4ML VIAL IV SCH (14:32)
--- NOTE | 2018-11-16 15:35 | NUR ---
REPORT GIVEN TO WARNER BRANCH, PATIENT TRANSFERRED TO ROOM 219 AFTER FEMORAL BYPASS BY DR. GARCIAS.
[2018-11-16 16:00] VITALS: BP 126/48
[2018-11-16 19:00] VITALS: BP 135/68
--- NOTE | 2018-11-16 20:00 | NUR ---
CARE Assumed care,pt aao x 3,denies chest pain or sob.Family members at bedside
--- NOTE | 2018-11-16 21:30 | NUR ---
UP WITH ASSIST Pt up with assistance to the bathroom,daughter at bedside.Carol well.
[2018-11-17] VITALS (11 sets, daily range): BP systolic 120–147; BP diastolic 45–89
[2018-11-17] MEDS: FUROSEMIDE 10 MG/ML 4ML VIAL IV SCH ×3 (00:30→17:40)
[2018-11-17] MEDS: NITROGLYCERIN 1GM/1 INCH PACKET TD SCH ×4 (03:00→20:58)
[2018-11-17 05:23] LABS: HEMATOCRIT 27.8 % (36-48); MEAN CORPUSCULAR HEMOGLOBIN 25.7 pg (27.0-33.0); MEAN CORPUSCULAR HGB CONC 32.3 g/dL (32.0-36.0); MEAN CORPUSCULAR VOLUME 79.4 fL (79-99); NUCLEATED RED BLOOD CELLS 0.1 % (0.0-0.19); PLATELET COUNT (AUTO) 140 K/uL (130-400); RED CELL DISTRIBUTION WIDTH 17.2 % (11.0-15.5)
[2018-11-17] MEDS: LEVOTHYROXINE 25 MCG TABLET PO SCH (05:38)
[2018-11-17] MEDS: INSULIN HUMULIN R 100 UNIT/ML 3ML SQ SCH ×4 (05:54→20:59)
[2018-11-17 06:08] LABS: PHOSPHORUS 4.5 mg/dL (2.5-4.9); POTASSIUM 3.5 mmol/L (3.5-5.1)
[2018-11-17] MEDS: BUDESONIDE 0.5 MG/2 ML INH IH SCH ×2 (06:38→18:34)
[2018-11-17] MEDS: IPRATROPIUM 0.5 MG/2.5 ML INH IH SCH ×4 (06:38→23:40)
[2018-11-17] MEDS: ACETYLCYSTEINE 10% 100MG/ML 4ML VIAL IH SCH ×4 (06:39→23:40)
[2018-11-17] MEDS: IRON SUCROSE COMPLEX 100 MG in SODIUM CHLORIDE 0.9% 50 ML IV SCH (09:23)
[2018-11-17] MEDS: METOPROLOL TARTRATE 50 MG TAB PO SCH ×2 (09:24→20:50)
[2018-11-17] MEDS: PANTOPRAZOLE SODIUM 40 MG TABLET.DR PO SCH ×2 (09:24→20:50)
[2018-11-17 11:54] LABS: HEMATOCRIT 29.5 % (36-48)
[2018-11-17 12:03] LABS: HEMOGLOBIN A1C 7.5 % (4.0-6.0)
[2018-11-17 12:11] LABS: ALBUMIN 3.2 g/dL (3.5-5.0)
[2018-11-17] MEDS: AZITHROMYCIN 500MG+NS 250ML 250 ML IV SCH (13:09)
[2018-11-17] MEDS: CEFTRIAXONE SODIUM 1 GM IV SCH (13:09)
[2018-11-17] MEDS: DILTIAZEM HCL 180 MG CAP.SR.24H PO SCH (13:09)
[2018-11-17 14:55] LABS: INR 1.06 (0.85-1.15); PROTHROMBIN TIME 11.1 SEC (9.6-11.6)
[2018-11-17] MEDS ORDERED: LIDOCAINE HCL 1% MDV 50ML VIAL ONE (14:59)
--- NOTE | 2018-11-17 15:35 | NUR ---
PROCEDURE REPORT RECEIVED BY WARNER PEPE FROM WARNER SIMENTAL (CONSUMER STUDIES PROFESSOR). PATIENT S/P RIGHT CHEST PERMACATH BY IR. HAZEL TO USE PERMACATH. VITAL: 140/74 - 99% RA
--- NOTE | 2018-11-17 18:43 | NUR ---
Nutrition Intervention: Nutrition screen based on LOS x 7 days. Pt. admitted with Dx of CHF, Anemia. Pt. s/p Right Perm-a-cath placement(11/17/18). Pt. report HD tx to be initiated tomorrow. Pt. on 75gm CCD diet with HS snack. Pt. reports good p.o. intake. Labs reviewed(Alb 3.2, BG 140, HgbA1c 7.5%, BUN 56, Creat 3.0, GFR 16). LBM: 11/17/18, per pt. SR-17, elastic. BMI: 26.8, normal for age. Pt. / family member educated on Diabetic Renal Dialysis diet and provided with education material. Pt. / family member verbalized understanding. Recommendations: 1) Rec. 75gm CCD Renal Dialysis diet. 2) Diabetic Renal Dialysis diet education given to patient and family member. 3) Continue to monitor pt's nutritional status. 4) Consult RD as nutrition concerns arise. Addendum: 11/17/18 at [address] Amended: Links added.
--- NOTE | 2018-11-17 23:10 | NUR ---
SHOWER Pt took a shower,tolerated well.Denies sob.
[2018-11-18 00:30] VITALS: BP 130/65
[2018-11-18] MEDS: NITROGLYCERIN 1GM/1 INCH PACKET TD SCH ×4 (03:00→21:00)
[2018-11-18 04:27] VITALS: BP 130/63
[2018-11-18] MEDS: INSULIN HUMULIN R 100 UNIT/ML 3ML SQ SCH ×4 (05:36→21:06)
[2018-11-18] MEDS: LEVOTHYROXINE 25 MCG TABLET PO SCH (05:48)
[2018-11-18] MEDS: FUROSEMIDE 10 MG/ML 4ML VIAL IV SCH ×2 (05:48→18:18)
[2018-11-18] MEDS: ACETYLCYSTEINE 10% 100MG/ML 4ML VIAL IH SCH ×4 (06:20→23:27)
[2018-11-18] MEDS: IPRATROPIUM 0.5 MG/2.5 ML INH IH SCH ×4 (06:20→23:27)
[2018-11-18 06:54] LABS: CREATININE 2.6 mg/dL (0.5-1.5); POTASSIUM 3.7 mmol/L (3.5-5.1)
[2018-11-18 06:55] LABS: HEMATOCRIT 28.5 % (36-48); MEAN CORPUSCULAR HEMOGLOBIN 26.3 pg (27.0-33.0); MEAN CORPUSCULAR HGB CONC 32.6 g/dL (32.0-36.0); MEAN CORPUSCULAR VOLUME 80.7 fL (79-99); NUCLEATED RED BLOOD CELLS 0.1 % (0.0-0.19); PLATELET COUNT (AUTO) 125 K/uL (130-400); RED BLOOD CELL COUNT(AUTO) 3.53 MIL/uL (4.00-5.50); RED CELL DISTRIBUTION WIDTH 17.5 % (11.0-15.5); WHITE BLOOD COUNT (AUTO) 5.3 K/uL (4.8-10.8)
[2018-11-18] MEDS: BUDESONIDE 0.5 MG/2 ML INH IH SCH ×2 (06:57→18:51)
[2018-11-18 07:30] VITALS: BP 130/65
[2018-11-18 08:11] LABS: HEPATITIS Bs ANTIGEN SCREEN P Negative (Negative)
[2018-11-18] MEDS: METOPROLOL TARTRATE 50 MG TAB PO SCH ×2 (09:00→21:07)
[2018-11-18] MEDS ORDERED: HEPARIN SODIUM 5000UNIT/ML 1ML VIAL IJ PRN (10:30)
[2018-11-18] MEDS ORDERED: 0.9% SODIUM CHLORIDE 1000 ML IV BAG IV PRN (10:30)
[2018-11-18] MEDS ORDERED: NITROGLYCERIN 0.4 MG SL TAB SL PRN (10:30)
[2018-11-18] MEDS ORDERED: LIDOCAINE HCL-MPF 1% 2ML VIAL IJ PRN (10:30)
[2018-11-18] MEDS ORDERED: ACETAMINOPHEN 325 MG TAB PO PRN (10:30)
[2018-11-18] MEDS ORDERED: SODIUM CHLORIDE 0.9% 1000ML 1,000 ML IV PRN (10:30)
[2018-11-18 11:00] VITALS: BP 105/50
--- NOTE | 2018-11-18 11:05 | NUR ---
CM Note: [facility] [place] approval and chair time Spoke to Blas díaz/[facility] Intake, aware pt and MD request [facility] dialysis. Pt pending approval and chair time at this time. Primary nurse aware. CM to cont to follow up.
[2018-11-18] MEDS: DILTIAZEM HCL 180 MG CAP.SR.24H PO SCH (12:08)
[2018-11-18] MEDS: CEFTRIAXONE SODIUM 1 GM IV SCH (12:08)
[2018-11-18] MEDS: PANTOPRAZOLE SODIUM 40 MG TABLET.DR PO SCH ×2 (12:09→21:07)
[2018-11-18] MEDS: AZITHROMYCIN 500MG+NS 250ML 250 ML IV SCH (12:09)
[2018-11-18 16:00] VITALS: BP 132/57
--- NOTE | 2018-11-18 16:00 | NUR ---
CM Note: [facility] pending approval and chair time CM met with pt discussed MD lee for outpatient dialysis, pt agreeable, DORIAN signed for [facility]. Faxed order and clinicals to [facility] and Intake, confirmation received. Spoke to Maggie, received clinicals aware forwarded to intake as well. Pt pending approval and chair time. Primary nurse aware. CM to cont to follow up.
[2018-11-18 19:05] VITALS: BP 117/49
[2018-11-19 00:05] VITALS: BP 124/65
[2018-11-19] MEDS: NITROGLYCERIN 1GM/1 INCH PACKET TD SCH ×4 (03:00→21:25)
[2018-11-19 04:00] VITALS: BP 147/75
[2018-11-19] MEDS: INSULIN HUMULIN R 100 UNIT/ML 3ML SQ SCH ×4 (06:46→21:00)
[2018-11-19] MEDS: BUDESONIDE 0.5 MG/2 ML INH IH SCH ×2 (06:48→19:11)
[2018-11-19] MEDS: ACETYLCYSTEINE 10% 100MG/ML 4ML VIAL IH SCH ×4 (06:48→23:31)
[2018-11-19] MEDS: IPRATROPIUM 0.5 MG/2.5 ML INH IH SCH ×4 (06:48→23:31)
[2018-11-19] MEDS: LEVOTHYROXINE 25 MCG TABLET PO SCH (06:52)
[2018-11-19 07:30] VITALS: BP 119/52
[2018-11-19] MEDS: HEPARIN SODIUM 5000UNIT/ML 1ML VIAL IJ PRN (08:20)
[2018-11-19] MEDS: METOPROLOL TARTRATE 50 MG TAB PO SCH ×2 (09:00→21:24)
[2018-11-19] MEDS: PANTOPRAZOLE SODIUM 40 MG TABLET.DR PO SCH ×2 (09:00→21:24)
--- NOTE | 2018-11-19 09:30 | NUR ---
DIALYSIS PATIENT S/P DIALYSIS TREATMENT BY BREANN PRYOR FOR 2.5 HOURS. 300ML REMOVED. PATIENT STABLE AT THIS TIME WITH V/S AT 97.9 - 97 - 18 -122/67. DRESSING TO SITE CHANGED.
[2018-11-19 11:00] VITALS: BP 115/62
[2018-11-19] MEDS: AZITHROMYCIN 500MG+NS 250ML 250 ML IV SCH (11:23)
[2018-11-19] MEDS: CEFTRIAXONE SODIUM 1 GM IV SCH (11:24)
[2018-11-19] MEDS: DILTIAZEM HCL 180 MG CAP.SR.24H PO SCH (12:35)
[2018-11-19 16:00] VITALS: BP 118/61
[2018-11-19 19:00] VITALS: BP 123/73
[2018-11-20] VITALS: BP 124/57
[2018-11-20] MEDS: NITROGLYCERIN 1GM/1 INCH PACKET TD SCH ×4 (03:00→21:15)
[2018-11-20 04:00] VITALS: BP 133/72
[2018-11-20] MEDS: IPRATROPIUM 0.5 MG/2.5 ML INH IH SCH ×4 (06:18→23:02)
[2018-11-20] MEDS: BUDESONIDE 0.5 MG/2 ML INH IH SCH ×2 (06:18→18:13)
[2018-11-20] MEDS: ACETYLCYSTEINE 10% 100MG/ML 4ML VIAL IH SCH ×4 (06:19→23:02)
[2018-11-20] MEDS: LEVOTHYROXINE 25 MCG TABLET PO SCH (06:39)
[2018-11-20] MEDS: INSULIN HUMULIN R 100 UNIT/ML 3ML SQ SCH ×4 (06:40→21:00)
[2018-11-20 07:00] VITALS: BP 125/73
[2018-11-20] MEDS: PANTOPRAZOLE SODIUM 40 MG TABLET.DR PO SCH ×2 (09:00→21:14)
[2018-11-20] MEDS: METOPROLOL TARTRATE 50 MG TAB PO SCH ×2 (09:00→21:14)
[2018-11-20 11:00] VITALS: BP 121/64
--- NOTE | 2018-11-20 11:09 | NUR ---
CM Note: [facility] pending approval and chair time. Spoke to Andree díaz/carly [facility] pending approval and chair time. Primary nurse aware. CM to cont to follow up.
[2018-11-20] MEDS: HEPARIN SODIUM 5000UNIT/ML 1ML VIAL IJ PRN (11:29)
[2018-11-20] MEDS: DILTIAZEM HCL 180 MG CAP.SR.24H PO SCH (13:48)
[2018-11-20] MEDS ORDERED: LIDOCAINE HCL 1% MDV 50ML VIAL ONE (14:43)
--- NOTE | 2018-11-20 15:09 | NUR ---
PERMACATH SUTURE PERMACATH DRESSING WITH DRY BLOOD. DRESSING REMOVED AND AREA PREPPED FOR SUTURE. LIDOCAINE 1% APPLIED TO CATHETER SITE. O SILK SUTURE APPLIED TO STOP SMALL AMOUNT OF OOZE AT THE CATHETER SITE. 4X4 DRESSING APPLIED AND COVERED WITH TEGADERM. PATIENT TOLERATED PROCEDURE WELL. HAND OFF REPORT GIVEN TO JEANNIE CRAIN. NO OOZING OR HEMATOMA NOTED.
[2018-11-20 16:00] VITALS: BP 141/90
[2018-11-20 20:20] VITALS: BP 129/52
[2018-11-21 00:02] VITALS: BP 131/54
[2018-11-21] MEDS: NITROGLYCERIN 1GM/1 INCH PACKET TD SCH ×4 (03:11→21:00)
[2018-11-21 03:40] VITALS: BP 130/59
[2018-11-21 06:06] LABS: CREATININE 1.8 mg/dL (0.5-1.5)
[2018-11-21] MEDS: IPRATROPIUM 0.5 MG/2.5 ML INH IH SCH ×4 (06:30→23:16)
[2018-11-21] MEDS: ACETYLCYSTEINE 10% 100MG/ML 4ML VIAL IH SCH ×4 (06:31→23:16)
[2018-11-21] MEDS: BUDESONIDE 0.5 MG/2 ML INH IH SCH ×2 (07:01→18:10)
[2018-11-21] MEDS: LEVOTHYROXINE 25 MCG TABLET PO SCH (07:24)
[2018-11-21 08:00] VITALS: BP 124/72
[2018-11-21] MEDS: PANTOPRAZOLE SODIUM 40 MG TABLET.DR PO SCH ×2 (09:29→21:00)
[2018-11-21] MEDS: METOPROLOL TARTRATE 50 MG TAB PO SCH ×2 (09:29→21:01)
--- NOTE | 2018-11-21 10:45 | NUR ---
[facility] OUTPT HD: Call placed to [facility] this am regarding status of outpt HD. Spoke arjun Mishra, charge nurse. Per Tad, pt has a preliminary chair time for MWF @ 2:15pm, however is still pending final approval/clearance. Per Tad CM to f/u Friday morning for final clearance.
[2018-11-21] MEDS: INSULIN HUMULIN R 100 UNIT/ML 3ML SQ SCH ×4 (11:30→21:00)
[2018-11-21 11:32] VITALS: BP 142/75
[2018-11-21] MEDS: DILTIAZEM HCL 180 MG CAP.SR.24H PO SCH (13:12)
[2018-11-21 16:00] VITALS: BP 141/78
[2018-11-21 20:00] VITALS: BP 119/62
[2018-11-22] VITALS: BP 121/60
[2018-11-22] MEDS: NITROGLYCERIN 1GM/1 INCH PACKET TD SCH ×4 (02:26→21:00)
[2018-11-22 04:00] VITALS: BP 135/55
[2018-11-22] MEDS: LEVOTHYROXINE 25 MCG TABLET PO SCH (06:00)
[2018-11-22] MEDS: IPRATROPIUM 0.5 MG/2.5 ML INH IH SCH ×3 (06:38→18:20)
[2018-11-22] MEDS: ACETYLCYSTEINE 10% 100MG/ML 4ML VIAL IH SCH (06:38)
[2018-11-22] MEDS: BUDESONIDE 0.5 MG/2 ML INH IH SCH ×2 (06:57→18:20)
[2018-11-22] MEDS: INSULIN HUMULIN R 100 UNIT/ML 3ML SQ SCH ×4 (07:01→21:03)
[2018-11-22 08:00] VITALS: BP 144/61
[2018-11-22] MEDS: PANTOPRAZOLE SODIUM 40 MG TABLET.DR PO SCH ×2 (09:05→21:03)
[2018-11-22] MEDS: METOPROLOL TARTRATE 50 MG TAB PO SCH ×2 (09:05→21:03)
[2018-11-22 12:00] VITALS: BP 131/60
[2018-11-22] MEDS: DILTIAZEM HCL 180 MG CAP.SR.24H PO SCH (13:36)
[2018-11-22 16:00] VITALS: BP 146/79
[2018-11-22 20:00] VITALS: BP 105/52
[2018-11-23] VITALS (7 sets, daily range): BP systolic 118–137; BP diastolic 55–75
[2018-11-23] MEDS: NITROGLYCERIN 1GM/1 INCH PACKET TD SCH ×4 (02:57→22:47)
[2018-11-23] MEDS: LEVOTHYROXINE 25 MCG TABLET PO SCH (06:05)
[2018-11-23] MEDS: INSULIN HUMULIN R 100 UNIT/ML 3ML SQ SCH ×4 (06:06→22:27)
[2018-11-23] MEDS: BUDESONIDE 0.5 MG/2 ML INH IH SCH ×2 (06:58→18:11)
[2018-11-23] MEDS: IPRATROPIUM 0.5 MG/2.5 ML INH IH SCH ×4 (06:58→23:03)
[2018-11-23 07:35] LABS: BASOPHILS % (AUTO) 0.6 % (0.0-5.0); EOSINOPHILS % (AUTO) 3.3 % (0.0-8.0); HEMATOCRIT 27.8 % (36-48); MEAN CORPUSCULAR VOLUME 81.3 fL (79-99); MONOCYTES % (AUTO) 8.2 % (3.0-13.0); NEUTROPHILS % (AUTO) 73.9 % (40.0-77.0); PLATELET COUNT (AUTO) 82 K/uL (130-400); RED BLOOD CELL COUNT(AUTO) 3.42 MIL/uL (4.00-5.50); RED CELL DISTRIBUTION WIDTH 18.2 % (11.0-15.5)
[2018-11-23 07:43] LABS: CREATININE 2.4 mg/dL (0.5-1.5); POTASSIUM 4.6 mmol/L (3.5-5.1)
[2018-11-23] MEDS: METOPROLOL TARTRATE 50 MG TAB PO SCH ×2 (09:00→22:44)
--- NOTE | 2018-11-23 11:48 | NUR ---
dialysis on going as per report patients bp went down during the treatment
--- NOTE | 2018-11-23 13:01 | NUR ---
[facility], stated confidential secretary is out to lunch at this time, requested call back to confirm approval MWF @2:15pm. CM to cont to follow up.
[2018-11-23] MEDS: DILTIAZEM HCL 180 MG CAP.SR.24H PO SCH (13:42)
[2018-11-23] MEDS: PANTOPRAZOLE SODIUM 40 MG TABLET.DR PO SCH ×2 (13:43→22:45)
--- NOTE | 2018-11-23 15:00 | NUR ---
[facility] Spoke to Tad díaz/[facility], pt approval confirmed MWF @ 2:15pm. Pt and family given chair time and directions. Pt and family aware to bring ID card and Insurance Card as well as all medication bottles 30min prior to chair time to be able to register. Primary nurse aware. CM to cont to follow up.
[2018-11-24] MEDS: NITROGLYCERIN 1GM/1 INCH PACKET TD SCH ×3 (04:13→14:44)
[2018-11-24 04:27] VITALS: BP 108/56
[2018-11-24 05:41] LABS: CREATININE 1.9 mg/dL (0.5-1.5); MAGNESIUM 1.9 mg/dL (1.80-2.40); POTASSIUM 4.4 mmol/L (3.5-5.1)
[2018-11-24] MEDS: BUDESONIDE 0.5 MG/2 ML INH IH SCH (06:57)
[2018-11-24] MEDS: IPRATROPIUM 0.5 MG/2.5 ML INH IH SCH ×2 (06:57→11:26)
[2018-11-24] MEDS: INSULIN HUMULIN R 100 UNIT/ML 3ML SQ SCH ×3 (07:30→16:30)
[2018-11-24 09:05] VITALS: BP 131/58
[2018-11-24] MEDS: PANTOPRAZOLE SODIUM 40 MG TABLET.DR PO SCH (09:22)
[2018-11-24] MEDS: METOPROLOL TARTRATE 50 MG TAB PO SCH (09:22)
[2018-11-24] MEDS: LEVOTHYROXINE 25 MCG TABLET PO SCH (09:22)
[2018-11-24 11:52] VITALS: BP 138/73
[2018-11-24] MEDS: DILTIAZEM HCL 180 MG CAP.SR.24H PO SCH (12:16)
--- NOTE | 2018-11-24 17:00 | NUR ---
DISCHARGE INSTRUCTIONS GIVEN. PATIENT INSTRUCTED TO FOLLOW UP DR. LAMAS, DR. GRIER AND DR. ABBI JON . ALL QUESTIONS ANSWERED. PATIENT TO HAVE DIALYSIS ON MWF WITH [facility]. IV DISCONTINUED WITH INNER CANNULA INTACT.
== END 2018-11-24 17:10 | disposition home or self-care (01) | DRG 286 ==
LOC: EDH 17:12 → EDHIP 18:41 → OBSVTOIN 18:41 → 3BH 20:40
PROVIDERS: ADMIT Internal Medicine Critical Care Medicine; ATTEND Internal Medicine Critical Care Medicine
PROC: 30233N1 Transfusion of Nonautologous Red Blood Cells into Peripheral Vein, Percutaneous Approach (ICD-10-PCS; 2018-11-10)
PROC: 0DJ08ZZ Inspection of Upper Intestinal Tract, Via Natural or Artificial Opening Endoscopic (ICD-10-PCS; 2018-11-12)
PROC: 0W993ZZ Drainage of Right Pleural Cavity, Percutaneous Approach (ICD-10-PCS; 2018-11-13)
PROC: 0DBK8ZZ Excision of Ascending Colon, Via Natural or Artificial Opening Endoscopic (ICD-10-PCS; 2018-11-13)
PROC: 0DBL8ZZ Excision of Transverse Colon, Via Natural or Artificial Opening Endoscopic (ICD-10-PCS; 2018-11-13)
PROC: 0DBM8ZZ Excision of Descending Colon, Via Natural or Artificial Opening Endoscopic (ICD-10-PCS; 2018-11-13)
PROC: 0JH63XZ Insertion of Tunneled Vascular Access Device into Chest Subcutaneous Tissue and Fascia, Percutaneous Approach (ICD-10-PCS; principal; 2018-11-17)
PROC: 02H633Z Insertion of Infusion Device into Right Atrium, Percutaneous Approach (ICD-10-PCS; 2018-11-17)
PROC: B2141ZZ Fluoroscopy of Right Heart using Low Osmolar Contrast (ICD-10-PCS; 2018-11-17)
PROC: B543ZZA Ultrasonography of Right Jugular Veins, Guidance (ICD-10-PCS; 2018-11-17)
PROC: 5A1D70Z Performance of Urinary Filtration, Intermittent, Less than 6 Hours Per Day (ICD-10-PCS; 2018-11-18)
PROC: 5A1D70Z Performance of Urinary Filtration, Intermittent, Less than 6 Hours Per Day (ICD-10-PCS; 2018-11-19)
PROC: 5A1D70Z Performance of Urinary Filtration, Intermittent, Less than 6 Hours Per Day (ICD-10-PCS; 2018-11-20)
PROC: 5A1D70Z Performance of Urinary Filtration, Intermittent, Less than 6 Hours Per Day (ICD-10-PCS; 2018-11-23)
DX: I13.2 Hypertensive heart and chronic kidney disease with heart failure and with stage 5 chronic kidney disease, or end stage renal disease (principal); J96.01 Acute respiratory failure with hypoxia; I50.33 Acute on chronic diastolic (congestive) heart failure; K57.31 Diverticulosis of large intestine without perforation or abscess with bleeding; N18.6 End stage renal disease; N17.9 Acute kidney failure, unspecified; N39.0 Urinary tract infection, site not specified; D62 Acute posthemorrhagic anemia; D68.59 Other primary thrombophilia; J91.8 Pleural effusion in other conditions classified elsewhere; E11.22 Type 2 diabetes mellitus with diabetic chronic kidney disease; E78.5 Hyperlipidemia, unspecified; D50.9 Iron deficiency anemia, unspecified; E11.65 Type 2 diabetes mellitus with hyperglycemia; I87.8 Other specified disorders of veins; D63.1 Anemia in chronic kidney disease; Z99.2 Dependence on renal dialysis; E66.01 Morbid (severe) obesity due to excess calories; I08.1 Rheumatic disorders of both mitral and tricuspid valves; I27.20 Pulmonary hypertension, unspecified; K31.89 Other diseases of stomach and duodenum; K44.9 Diaphragmatic hernia without obstruction or gangrene; D12.2 Benign neoplasm of ascending colon; D12.4 Benign neoplasm of descending colon; K64.0 First degree hemorrhoids; D12.3 Benign neoplasm of transverse colon; I48.0 Paroxysmal atrial fibrillation; Z79.4 Long term (current) use of insulin; Z79.899 Other long term (current) drug therapy; Z82.49 Family history of ischemic heart disease and other diseases of the circulatory system; Z86.010 Personal history of colon polyps; Z91.19 Patient's noncompliance with other medical treatment and regimen; Z98.51 Tubal ligation status; Z68.25 Body mass index [BMI] 25.0-25.9, adult
CPT/HCPCS: 32555; 36415; 36430; 36558; 43235; 45385; 71045; 71250; 77001; 80048; 80053; 80061; 80069; 80076; 81001; 82040; 82270; 82550; 82565; 82728; 82945; 82947; 82948; 83010; 83036; 83540; 83550; 83615; 83690; 83735; 83880; 83986; 84100; 84145; 84157; 84443; 84484; 84520; 85014; 85018; 85025; 85027; 85045; 85610; 85730; 86701; 86704; 86706; 86850; 86900; 86901; 86922; 87071; 87116; 87205; 87206; 87340; 87390; 87520; 87804; 88108; 88305; 89051; 90935; 93005; 93306; 94640; 94664; 97039; C1750; G0378; J0456; J0696; J1644; J1756; J1815; J1940; J3490; J7030; J7040; J7608; P9016

== ENCOUNTER 2019-04-21 12:00 | Day surgery (SDC) | payer OTHER ==
[2019-04-19 12:51] VITALS: BP 112/54
[2019-04-19 12:59] LABS: BASOPHILS % (AUTO) 0.3 % (0.0-5.0); EOSINOPHILS % (AUTO) 3.1 % (0.0-8.0); HEMATOCRIT 33.8 % (36-48); LYMPHOCYTES % (AUTO) 14.4 % (21.0-51.0); MEAN CORPUSCULAR HEMOGLOBIN 27.7 pg (27.0-33.0); MEAN CORPUSCULAR HGB CONC 31.4 g/dL (32.0-36.0); MEAN CORPUSCULAR VOLUME 88.5 fL (79-99); MONOCYTES % (AUTO) 7.5 % (3.0-13.0); NEUTROPHILS % (AUTO) 74.4 % (40.0-77.0); PLATELET COUNT (AUTO) 122 K/uL (130-400); RED BLOOD CELL COUNT(AUTO) 3.82 MIL/uL (4.00-5.50); RED CELL DISTRIBUTION WIDTH 14.6 % (11.0-15.5); WHITE BLOOD COUNT (AUTO) 6.2 K/uL (4.8-10.8)
[2019-04-19 13:09] LABS: CREATININE 3.4 mg/dL (0.5-1.5); POTASSIUM 5.6 mmol/L (3.5-5.1)
--- NOTE | 2019-04-19 13:33 | NUR ---
Reported EKG results to Doctor Dubois, no new orders.
--- NOTE | 2019-04-19 13:45 | NUR ---
Called Doctor Alvarado to ask if there should be any adjustment for dialysis , Per Doctor Alvarado Dialysis nurse should of set up dialysis for Friday04/20/19. Called the Patient spoke to Fela Cox ([facility] ) and said that they just got to dialysis center now and they would speak to the nurse about it.
[2019-04-21] VITALS (14 sets, daily range): BP systolic 118–139; BP diastolic 42–66
[~2019-04-21] VITALS: Ht 165.1 cm; Wt 71.1 kg
[~2019-04-21 12:00] MED LIST changes: -CALC-1009 PO; +CEFAZOLIN SODIUM 1 GM VIAL IVP SCH; -CENTRUM CHEWAB1 EACH PO; +DILT180C51 PO; -FERR324T4 PO; +FURO20TA6 PO; -FURO40TA5 PO; +HYDR-3421 PO; -INSU100I15 SQ; +LOPE2TAB24 PO; +METO-391 PO; +METO5TAB7 PO; -METR375C2 PO; -PANT40TA25 PO; -TRAZ-187 PO
[2019-04-21] MEDS ORDERED: SODIUM CHLORIDE 0.9% 1000ML 1,000 ML IV ONE (12:52)
[2019-04-21] MEDS ORDERED: SUCCINYLCHOLINE 200MG/10ML SYR ONE (14:18)
[2019-04-21] MEDS ORDERED: DEXAMETHASONE SOD PHOSPHATE 10MG/ML 1ML VIAL ONE (14:18)
[2019-04-21] MEDS ORDERED: LIDOCAINE PF 2% 5ML ABBOJECT ONE (14:18)
[2019-04-21] MEDS ORDERED: ROCURONIUM 10MG/1ML SYR 10 MG/ML ML ONE (14:19)
[2019-04-21] MEDS ORDERED: GLYCOPYRROLATE 1 MG/5 ML SYRINGE ONE (14:19)
[2019-04-21] MEDS ORDERED: MIDAZOLAM HCL 1 MG/ML 2ML VIAL ONE (14:19)
[2019-04-21] MEDS ORDERED: PROPOFOL 10 MG/ML 20ML VIAL IV ONE (14:19)
[2019-04-21] MEDS ORDERED: ONDANSETRON HCL 4 MG/2 ML VIAL ONE (14:19)
[2019-04-21] MEDS ORDERED: NEOSTIGMINE 5MG/5ML SYR IV ONE (14:19)
[2019-04-21] MEDS ORDERED: FENTANYL CITRATE PF 50 MCG/1 ML 2ML VIAL ONE (14:20)
[2019-04-21] MEDS ORDERED: EPHEDRINE SULFATE 50 MG/ML AMPULE ONE (15:00)
[2019-04-21] MEDS ORDERED: NALOXONE HCL 0.4 MG/1 ML ML ONE (17:23)
--- NOTE | 2019-04-21 18:20 | NUR ---
DIALYSIS ACCESS TO RT CHEST AREA. PT WITH GOOD RADIAL PULSE TO RT HAND. RT HAND WITH GOOD CAPILLARY REFILL AND WARM TO TOUCH. PT DENIES PAIN.
--- NOTE | 2019-04-21 18:33 | NUR ---
PATIENT ARRIVED TO DAY PATIENT VIA STRETCHER BY WARNER RODRÍGUEZ. PATIENT AAOX3, RESPIRATIONS UNLABORED, VITAL SIGNS STABLE, DENIES ANY PAIN AT THIS TIME. DRESSING TO LEFT UPPER ARM WITH SEROSANGUINEOUS DRAINAGE NOTED (LIGHT PINK). BRUISING NOTED AROUND DRESSING. DRESSING TO LEFT UPPER CHEST (CATHETER/DIALYSIS ACCESS) IS DRY AND INTACT. SIDE RAILS UP X2, BED IN LOWEST POSITION, CALL MARMOLEJO IN REACH.
--- NOTE | 2019-04-21 19:08 | NUR ---
DISCHARGE INSTRUCTIONS PROVIDED TO PATIENT'S DAUGHTER. DAUGHTER INSTRUCTED TO CALL DR TAYLOR'S OFFICE TO MAKE FOLLOW UP APPOINTMENT IN 2-3 DAYS AND TO LEAVE DRESSING IN PLACE AND KEEP DRY UNTIL SEEN BY DR TAYLOR. PATIENT'S DAUGHTER VERBALIZED UNDERSTANDING OF INSTRUCTIONS. HANDOUTS PROVIDED ON SURGICAL SITE INFECTIONS AND TRAMADOL MEDICATIONS. ALL QUESTIONS/CONCERNS ADDRESSED.
--- NOTE | 2019-04-21 19:25 | NUR ---
PATIENT DISCHARGED FROM FACILITY VIA WHEELCHAIR BY NURSE. PATIENT ASSISTED INTO PRIVATE VEHICLE DRIVEN BY FAMILY MEMBER.
== END 2019-04-21 19:25 | disposition home or self-care (01) ==
LOC: DAH 12:00
PROVIDERS: ATTEND Student in an Organized Health Care Education/Training Program
DX: I13.2 Hypertensive heart and chronic kidney disease with heart failure and with stage 5 chronic kidney disease, or end stage renal disease (principal); E11.22 Type 2 diabetes mellitus with diabetic chronic kidney disease; N18.6 End stage renal disease; I48.91 Unspecified atrial fibrillation; I50.9 Heart failure, unspecified; I73.9 Peripheral vascular disease, unspecified; Z79.899 Other long term (current) drug therapy; Z98.890 Other specified postprocedural states; Z98.51 Tubal ligation status; Z90.49 Acquired absence of other specified parts of digestive tract; Z87.891 Personal history of nicotine dependence; Z82.5 Family history of asthma and other chronic lower respiratory diseases; Z83.3 Family history of diabetes mellitus
CPT/HCPCS: 36415 ×2; 36821; 80048; 82948 ×2; 84132; 85025; 93005; A4215; A4221; A4222; A4223; A4450; A4600; A4649; A4663; A4930 ×2; A6260; C1713 ×2; G0168; J0330; J0690; J1100; J2001; J2250; J2310; J2405; J2704; J2710; J3010; J3490 ×2; J7030

== ENCOUNTER → 2019-10-12 | Outpatient (CLI) | payer OTHER | END | disposition home or self-care (01) | LOC: SHCH 12:54 | PROVIDERS: ATTEND Internal Medicine Cardiovascular Disease | DX: I87.2 Venous insufficiency (chronic) (peripheral) (principal) ==